=== PATIENT | male | born 1955 | race Caucasian/White ===

== ENCOUNTER 2016-09-06 14:32 | Observation (INO) | payer BC ==
[~2016-09-06] VITALS: Ht 177.8 cm; Wt 85.0 kg
[2016-09-06] MEDS ORDERED: ZOCOR 80MG80 MG PO (15:18)
[2016-09-06] MEDS ORDERED: OMEGA-3 1000 MG1 CAP PO (15:18)
[2016-09-06] MEDS ORDERED: ASPIRIN 32325 MG/TA1 PO (15:19)
[2016-09-06 15:20] VITALS: BP 142/66; PULSE 73; TEMP 98.4
[2016-09-06] MEDS ORDERED: MULTI VITAMINS1 TAB PO (15:20)
[2016-09-06] MEDS ORDERED: ASPIRIN 32325 MG/TA1 (15:20)
[2016-09-06] MEDS ORDERED: SLO-NIACIN250 MG (15:21)
[2016-09-06 16:43] LABS: CALCIUM 6.3 mg/dL (8.4-10.2); CREATININE, serum 1.15 mg/dL (0.66-1.25); POTASSIUM 3.2 mmol/L (3.4-5.0)
== END 2016-09-06 18:25 | disposition home or self-care (01) ==
LOC: SDCO 14:32 → SURG 14:35 → SDCO 14:35 → SURG 14:46 → SDCO 18:25 → SURG 18:25
PROVIDERS: Urology
DX: N20.1 Calculus of ureter (principal); N17.9 Acute kidney failure, unspecified
CPT/HCPCS: OP; G0378; G0379; J7030

== ENCOUNTER → 2018-02-14 | Outpatient (CLI) | payer BC ==
[~2018-02-14] MED LIST: ASPIRIN 32325 MG/TA1; ASPIRIN 32325 MG/TA1 PO; MULTI VITAMINS1 TAB PO; OMEGA-3 1000 MG1 CAP PO; SLO-NIACIN250 MG; ZOCOR 80MG80 MG PO
== END ==
LOC: COL.LAB 15:54
DX: Z01.812 Encounter for preprocedural laboratory examination (principal)